=== PATIENT | female | born 1980 ===

== ENCOUNTER 2017-05-02 14:04 | Emergency (ER) | payer OTHER ==
[2017-05-02] MEDS ORDERED: Albuterol-Ipratrop 3 mg / 0.5 (3 ml) UD ONE ×2 (14:13→15:43)
[2017-05-02 14:34] VITALS: PULSE 85
[2017-05-02] MEDS: Albuterol-Ipratrop 3 mg / 0.5 (3 ml) UD IH SCH ×2 (15:00→15:15)
--- NOTE | 2017-05-02 15:49 | RAD ---
HISTORY: SOB, wheezing COMPARISON: No prior. TECHNIQUE: Chest PA and lateral FINDINGS: LUNGS: No active pulmonary disease. PLEURA: No significant pleural effusion identified. No pneumothorax apparent. CARDIOVASCULAR: Normal. OSSEOUS STRUCTURES: No significant abnormalities. VISUALIZED UPPER ABDOMEN: Normal. OTHER FINDINGS: None. IMPRESSION: No active disease.
--- NOTE | 2017-05-02 15:53 | C.PDOC ---
Time Seen by Provider: 05/02/17 14:23 Chief Complaint (Nursing): Shortness Of Breath History Per: Patient Onset/Duration Of Symptoms: Hrs (1) Current Symptoms Are (Timing): Still Present Initiating Event: Other (Environmental allergies) Current Respiratory Medications: See Home Med List, Albuterol Severity: Moderate Additional History Per: Prior Records Past Medical History Reviewed: Historical Data, Nursing Documentation, Vital Signs Vital Signs: Last Vital Signs Temp 98.1 F 05/02/17 14:05 Pulse 85 05/02/17 14:05 Resp 26 H 05/02/17 14:05 BP Pulse Ox 98 05/02/17 15:55 - Medical History PMH: Asthma Surgical History: Family History: States: Unknown Family Hx - Social History Hx Tobacco Use: No Hx Alcohol Use: No Hx Substance Use: No - Immunization History Hx Tetanus Toxoid Vaccination: No Hx Influenza Vaccination: No Hx Pneumococcal Vaccination: No Review Of Systems Except As Marked, All Systems Reviewed And Found Negative. Constitutional: Negative for: Fever ENT: Positive for: Nose Congestion. Negative for: Throat Pain Cardiovascular: Negative for: Chest Pain Respiratory: Positive for: Shortness of Breath, Wheezing. Negative for: Hemoptysis Gastrointestinal: Negative for: Vomiting, Abdominal Pain Musculoskeletal: Negative for: Neck Pain, Back Pain, Leg Pain Skin: Negative for: Rash Neurological: Negative for: Weakness, Numbness Physical Exam - Physical Exam Appears: Non-toxic, In Acute Distress (mild) Skin: Normal Color, Warm, Dry, No Rash Head: Atraumatic, Normacephalic Eye(s): bilateral: Normal Inspection, PERRL, EOMI Oral Mucosa: Moist, No Drooling, No Trismus Throat: Normal Neck: Normal ROM, Supple Cardiovascular: Rhythm Regular Respiratory: No Accessory Muscle Use, Wheezing (scattered, after 1 Duoneb given by RN at triage) Gastrointestinal/Abdominal: Soft, No Tenderness Back: No CVA Tenderness Extremity: Normal ROM, No Pedal Edema, No Calf Tenderness Neurological/Psych: Oriented x3, Normal Motor, Normal Sensation ED Course And Treatment O2 Sat by Pulse Oximetry: 98 Pulse Ox Interpretation: Normal - Radiology CXR: Viewed By Me, Read By Radiologist CXR Interpretation: Yes: No Acute Disease Progress Note: Pt feels much better and wants to go home. No SOB. Lungs clear. Peak flow improved to 300. Reassessment Condition: Improved Progress - Interventions Interventions:: Observation - Medications Administered Oral: Corticosteriod, H-2 audrey Inhaled nebulized: Anticholinergic, Beta-2 agonist - Data Reviewed Data Reviewed: Diagnostic imaging, Old records - Patient Status Patient status: Mostly improved - Continuity of Care Discussed patient case with:: Patient, Family-HIPPA compliant, ED Nurse - Patient Plan Patient Plan: Discharge, F/U with PCP, Continue present meds Disposition Counseled Patient/Family Regarding: Studies Performed, Diagnosis, Need For Followup, Rx Given - Disposition Referrals: [facility] [Outside] Disposition: HOME/ ROUTINE Disposition Time: 16:23 Condition: IMPROVED Additional Instructions: Follow up in the clinic within 1-2 weeks for further evaluation and treatment. Return to the ER if you develop shortness of breath, chest pain, worsening of symptoms or if you have any other concerns. Prescriptions: Albuterol HFA [Ventolin HFA 90 mcg/actuation (8 g)] 2 puff IH Q4 PRN #1 unit PRN Reason: Wheezing Loratadine [Claritin] 10 mg PO DAILY 1 Days #30 tab predniSONE [predniSONE Tab] 2 tab PO DAILY #8 tab Instructions: Asthma (ED) Forms: [employer] (Tongan) Print Language: FINNISH - Clinical Impression Clinical Impression: Asthma exacerbation, Environmental allergies
[2017-05-02 16:30] VITALS: BP 126/82; RESP 18; TEMP 97.9; O2SAT 100
== END 2017-05-02 16:38 | disposition home or self-care (01) ==
LOC: C.ER 14:04
DX: J45.901 Unspecified asthma with (acute) exacerbation (principal)

== ENCOUNTER 2018-02-11 12:33 | Emergency (ER) | payer OTHER ==
[2018-02-11 12:41] VITALS: BP 119/81; PULSE 78; RESP 18; TEMP 98.5; O2SAT 100
--- NOTE | 2018-02-11 12:48 | C.PDOC ---
History Of Present Illness Patient is a 37 y/o F presenting with lip swelling. Patient reports that 3 days ago she developed itchiness around the lips. She reports that her sister told her it might be a cold sore so she applied abreva. She reports that the area has become more swollen yesterday and today so she came to the ED. Denies any other new lotions, detergents or medications. Reports seafood allergy. Denies shortness of breath, change in voice or difficulty swallowing. Time Seen by Provider: 02/11/18 12:40 Chief Complaint (Nursing): Allergic Reaction Past Medical History Vital Signs: Last Vital Signs Temp 98.5 F 02/11/18 12:38 Pulse 78 02/11/18 12:38 Resp 18 02/11/18 12:38 BP 119/81 02/11/18 12:38 Pulse Ox 100 02/11/18 12:38 - Medical History PMH: Asthma Denies: Chronic Kidney Disease Surgical History: Family History: States: Unknown Family Hx - Social History Hx Tobacco Use: No Hx Alcohol Use: No Hx Substance Use: No - Immunization History Hx Tetanus Toxoid Vaccination: No Hx Influenza Vaccination: No Hx Pneumococcal Vaccination: No Review Of Systems Constitutional: Negative for: Fever, Chills Eyes: Negative for: Pain, Vision Change ENT: Positive for: Other (lip swelling). Negative for: Mouth Swelling, Throat Pain, Throat Swelling Cardiovascular: Negative for: Chest Pain, Palpitations, Edema, Light Headedness Respiratory: Negative for: Cough, Shortness of Breath, Hemoptysis, SOB with Excertion, Wheezing Gastrointestinal: Negative for: Nausea, Vomiting, Abdominal Pain, Diarrhea, Constipation Genitourinary: Negative for: Dysuria Skin: Negative for: Rash Neurological: Negative for: Weakness, Numbness, Incoordination, Confusion, Seizures, Altered Mental Status, Headache, Dizziness Physical Exam - Physical Exam Appears: Well, Non-toxic, No Acute Distress Skin: Normal Color, Warm, Dry Head: Atraumatic, Normacephalic Eye(s): bilateral: Normal Inspection, PERRL, EOMI Nose: Normal Oral Mucosa: Moist Tongue: Normal Appearing Lips: Swelling (to upper and lower) Teeth: Normal Dentition Gingiva: Normal Appearing Throat: Normal, No Erythema, No Exudate, Other (uvula midline with no swelling) Neck: Supple Chest: Symmetrical Cardiovascular: Rhythm Regular Respiratory: Normal Breath Sounds, No Rales, No Rhonchi, No Wheezing Gastrointestinal/Abdominal: Soft, No Tenderness, No Distention Extremity: Normal ROM Neurological/Psych: Oriented x3, Normal Speech, Normal Cranial Nerves, Normal Motor, Normal Sensation Gait: Steady ED Course And Treatment O2 Sat by Pulse Oximetry: 100 Progress Note: Patient has isolated lip swelling with no respiratory involvement. Phonating normally and tolerating secretions. Lungs cta b/l. Given benadryl and steroids with improvement of symptoms. Instructed to not use abreva as presentation is not consistent with cold sores Disposition - Disposition Disposition: HOME/ ROUTINE Disposition Time: 12:52 Condition: GOOD Additional Instructions: Follow-up with PMD within 2 days. Return to ED if condition worsens. Take benadryl as needed for itching. Take full course of steroids. Prescriptions: DiphenhydrAMINE [Benadryl] 25 mg PO Q6 PRN #15 cap PRN Reason: Itching / Pruritus Prednisone 50 mg PO DAILY #3 tablet Instructions: Food Allergy, Allergy Testing Forms: [employer] (Icelandic) Print Language: MOHAWK - Clinical Impression Clinical Impression: Allergic reaction
== END 2018-02-11 13:08 | disposition home or self-care (01) ==
LOC: C.ER 12:33
DX: T78.40XA Allergy, unspecified, initial encounter (principal)

== ENCOUNTER 2018-02-20 19:50 | Emergency (ER) | payer OTHER ==
[2018-02-20 20:03] VITALS: BP 119/66; PULSE 75; RESP 18; TEMP 98.1; O2SAT 100
--- NOTE | 2018-02-20 20:59 | C.PDOC ---
History Of Present Illness 37 y/o female presents to the ER for evaluation of irritated skin/ rash around the oral cavity that began 8 days ago. According to the patient, the rash causes severe itching and burning sensation. She reports taking benedryl and applying creams, that she does not remember the name of, with no relief. The patient also admits to icing the affected area with no relief. She denies any new medication or change in diet. Time Seen by Provider: 02/20/18 20:05 Chief Complaint (Nursing): Allergic Reaction History Per: Patient History/Exam Limitations: no limitations Onset/Duration Of Symptoms: Days Current Symptoms Are (Timing): Still Present Location Of Injury: Anterior: Mouth Quality Of Symptoms: Itching, Other (Burning) Recent travel outside of the [place]: No Past Medical History Reviewed: Historical Data, Nursing Documentation, Vital Signs Vital Signs: Last Vital Signs Temp 98.1 F 02/20/18 19:59 Pulse 75 02/20/18 19:59 Resp 18 02/20/18 19:59 BP 119/66 02/20/18 19:59 Pulse Ox 100 02/20/18 21:11 - Medical History PMH: Asthma Denies: Chronic Kidney Disease Surgical History: Family History: States: Unknown Family Hx - Social History Hx Tobacco Use: No Hx Alcohol Use: No Hx Substance Use: No - Immunization History Hx Tetanus Toxoid Vaccination: No Hx Influenza Vaccination: No Hx Pneumococcal Vaccination: No Review Of Systems Except As Marked, All Systems Reviewed And Found Negative. Constitutional: Negative for: Fever ENT: Positive for: Other (itching/ swelling around oral cavity). Negative for: Mouth Swelling Skin: Positive for: Rash (oral rash). Negative for: Lesions (no oral lesions) Physical Exam - Physical Exam Appears: Well, Non-toxic, No Acute Distress Skin: Warm, Dry, Rash (areal dematitis around oral cavity), Other (mild edema aroun oral cavity) Head: Atraumatic, Normacephalic Eye(s): bilateral: PERRL, EOMI Ear(s): Bilateral: Normal Oral Mucosa: Moist Neck: Normal ROM Chest: Symmetrical Cardiovascular: Rhythm Regular, No Murmur Respiratory: Normal Breath Sounds, No Rales, No Rhonchi, No Wheezing, Other ( NARD) Gastrointestinal/Abdominal: Bowel Sounds, Soft, No Tenderness Extremity: Bilateral: Atraumatic, Normal Color And Temperature, Normal ROM Pulses: Left Radial: Normal, Right Radial: Normal Neurological/Psych: Oriented x3, Normal Speech Gait: Steady ED Course And Treatment O2 Sat by Pulse Oximetry: 100 (RA) Pulse Ox Interpretation: Normal Medical Decision Making Medical Decision Making: Impression: 37 y/o female with areal dermatitis/mild edema around oral cavity Patient was advised to keep area moisturized and kept away from the sun as well as to follow up with licensing analyst. Disposition Counseled Patient/Family Regarding: Diagnosis, Need For Followup, Rx Given - Disposition Referrals: [facility] [Outside] [facility] [Outside] Disposition: HOME/ ROUTINE Disposition Time: 20:56 Condition: GOOD Additional Instructions: USAR PRODUCTOS DE PIEL SENSIBLES Y EVITAR PRODUCTOS CON PRODUCTOS QUMICOS PELIGROSOS, IRRITANTES. MANTNGASE HIDRATADO CON PRODUCTOS A BASE DE ACEITE. CL FADY DE SEGUIMIENTO. Prescriptions: Cephalexin [cephalexin] 500 mg PO BID #14 cap Instructions: Skin Rash (DC) Forms: [employer] (Sami) Print Language: BELIZEAN - Clinical Impression Clinical Impression: Perioral dermatitis - PA / [employer] / Resident Statement MD/DO has reviewed & agrees with the documentation as recorded. - Scribe Statement The provider has reviewed the documentation as recorded by the Scribe (Brandi Gutierrez) Provider Attestation: All medical record entries made by the Scribe were at my direction and personally dictated by me. I have reviewed the chart and agree that the record accurately reflects my personal performance of the history, physical exam, medical decision making, and the department course for this patient. I have also personally directed, reviewed, and agree with the discharge instructions and disposition.
== END 2018-02-20 21:11 | disposition home or self-care (01) ==
LOC: SUPCPDRO 19:50 → C.ER 19:50
DX: L71.0 Perioral dermatitis (principal)